=== PATIENT | male | born 1940 | race Two or more races ===

== ENCOUNTER 2022-10-29 07:53 | Emergency (ER) | payer OTHER ==
[~2022-10-29] VITALS: Ht 167.6 cm; Wt 52.2 kg
[2022-10-29] MEDS ORDERED: MUPIROCIN15 GM TOP (09:38)
== END 2022-10-29 09:47 | disposition home or self-care (01) ==
LOC: ER 07:53
DX: L98.9 Disorder of the skin and subcutaneous tissue, unspecified (principal); H61.91 Disorder of right external ear, unspecified; R21 Rash and other nonspecific skin eruption

== ENCOUNTER 2024-06-24 10:10 | Emergency (ER) | payer OTHER ==
[~2024-06-24] VITALS: Ht 170.2 cm; Wt 54.4 kg
[~2024-06-24 10:10] MED LIST: MUPIROCIN15 GM TOP
[2024-06-24] MEDS ORDERED: FAMOtidine 10 MG/ML (4ML VIAL) IV ONE (11:45)
[2024-06-24] MEDS ORDERED: CIPROFLOXACIN IN 5 % DEXTROSE 400 MG/200 ML PIGGYBAG IV ONE (11:45)
[2024-06-24] MEDS ORDERED: METRONIDAZOLE/SODIUM CHLORIDE 500 MG/100 ML PIGGYBACK IV ONE (11:45)
[2024-06-24 12:57] LABS: MEAN CELL VOLUME 88.1 fL (80.0-100.00); MEAN CORPUSCULAR HEMOGLOBIN 29.4 pg (27.00-32.0); MEAN CORPUSCULAR HGB CONC 33.4 g/dl (32.0-36.0); PLATELET COUNT 331 K/uL (150-450); RED BLOOD COUNT 4.42 M/uL (4.00-6.00); RED CELL DISTRIBUTION WIDTH 13.9 % (11.5-14.5)
[2024-06-24 13:28] LABS: INR 1.63; PARTIAL THROMBOPLASTIN TIME 33.3 SECONDS (22.0-34.0)
[2024-06-24 13:42] LABS: PROTHROMBIN TIME 17.1 SECONDS (9.0-11.5)
[2024-06-24 13:49] LABS: ALBUMIN 2.7 gm/dL (3.4-5.0); BILIRUBIN TOTAL 0.7 mg/dL (0.3-1.2); CALCIUM 8.6 mg/dL (8.5-10.1); CREATININE SERUM 1.13 mg/dL (0.70-1.30); GFR 62.13; GLOBULINA 4.1 G/DL (2.4-3.5); POTASSIUM 4.87 mEq/L (3.5-5.1); TOTAL PROTEIN 6.8 gm/dL (6.4-8.2)
[2024-06-24 15:39] LABS: URINE APPEARANCE Clear; URINE BILIRRUBIN Negative (NEGATIVE); URINE BLOOD Negative; URINE COLOR Yellow; URINE GLUCOSE Negative (NEGATIVE); URINE KETONE 15 (NEGATIVE); URINE LEUKOCYTE Negative; URINE NITRATE Negative; URINE PROTEIN Trace (NEGATIVE)
[2024-06-24 15:42] LABS: URINE BACTERIA 26.9 uL (0.0-1933); URINE EPITHELIAL CELLS 7.5 uL (0.0-38.8); URINE WBC 5.5 uL (0.0-23.2)
[2024-06-24 15:44] LABS: URINE CAST 1.03 uL (0.0-1.40); URINE RBC 1.1 uL (0.0-20.8)
[2024-06-24] MEDS ORDERED: PROBIOTIC1 EAC2 PO (16:18)
== END 2024-06-24 16:28 | disposition home or self-care (01) ==
LOC: ER 10:13
PROVIDERS: General Practice
DX: R19.7 Diarrhea, unspecified (principal); R10.9 Unspecified abdominal pain; E03.8 Other specified hypothyroidism
CPT/HCPCS: 36415; 74177; Q9965

== ENCOUNTER → 2024-07-07 | Emergency (ER) | payer OTHER ==
[~2024-07-07] MED LIST changes: +PROBIOTIC1 EAC2 PO
== END | disposition left against medical advice (07) ==
LOC: ER 15:59
DX: Z53.21 Procedure and treatment not carried out due to patient leaving prior to being seen by health care provider (principal)